=== PATIENT | male | born 1950 | race Caucasian/White ===

== ENCOUNTER 2016-04-10 04:42 | Observation (INO) | payer MEDICARE, OTHER ==
[~2016-04-10] VITALS: Ht 180.3 cm; Wt 94.3 kg
[~2016-04-10 04:42] MED LIST: ASPIR 8181 MG PO; BAYER CHEWABLE81 MG PO; CHERATUSSIN AC473 ML PO; CLONIDINE1 EAC1 TD; CORDARONE 200M200 MG PO; COREG 12.5MG12.5 MG PO; COREG 25MG TAB25 MG PO; COZAAR 25MG TAB25 MG PO; COZAAR100 MG PO; EMLA 30 GRAM TUB1 EA TOP; FAMOTIDINE20 MG PO; FEROSUL325 MG PO; FISH OIL 1,0001 EAC1 PO; FOSRENOL1000 MG PO; HUMIBID LA TAB600 MG PO; ISOSORBIDE MONO30 MG PO; LEVAQUIN250 MG PO; LEVEMIR100 UNIT/1 SC; LEVEMIR100 UNIT/1 SQ; LIDODERM PATCH 51 EA TOP; LIPITOR TAB 2020 MG PO; LOPERAMIDE2 MG PO; LORTAB 5-325 M1 EACH PO; MIRALAX PACK 171 PKT PO; MIRALAX17 GM PO; NOVOLOG100 UNIT/1 SQ; PHENERGAN 25 MG25 M1 PO; PLAVIX 75 MG TA75 MG PO; PROTONIX40 MG PO; RENA-VITE RX T1 EACH PO; RENVELA800 MG PO; SENNA8.6 MG PO; VALIUM 2 MG TAB2 MG PO; VITAMIN D31000 UNIT PO
[2016-04-10 05:19] LABS: HEMOGLOBIN 9.3 gm/dl (14.0-17.5); RED BLOOD COUNT 3.4 M/UL (4.20-5.50); WHITE BLOOD COUNT 6.4 K/UL (4.5-11.0)
[2016-04-10] MEDS ORDERED: RISPERDAL0.5 MG PO (09:57)
[2016-04-11] MEDS ORDERED: FORTAZ2 GM INJ (20:37)
[2016-04-11] MEDS ORDERED: VANCOCIN 125MG/2.5ML IV (20:40)
== END 2016-04-11 21:33 | disposition other institution (70) ==
LOC: ER1 04:42 → M/S 06:32 → ZEROF 06:32 → M/S 06:32
PROVIDERS: Student in an Organized Health Care Education/Training Program; ADMIT Internal Medicine
DX: R07.89 Other chest pain (principal); R74.8 Abnormal levels of other serum enzymes; M46.44 Discitis, unspecified, thoracic region; I25.5 Ischemic cardiomyopathy; I25.10 Atherosclerotic heart disease of native coronary artery without angina pectoris; E11.22 Type 2 diabetes mellitus with diabetic chronic kidney disease; I13.2 Hypertensive heart and chronic kidney disease with heart failure and with stage 5 chronic kidney disease, or end stage renal disease; I50.42 Chronic combined systolic (congestive) and diastolic (congestive) heart failure; N18.6 End stage renal disease; E78.5 Hyperlipidemia, unspecified; Z88.0 Allergy status to penicillin; Z88.2 Allergy status to sulfonamides; Z88.8 Allergy status to other drugs, medicaments and biological substances; Z79.891 Long term (current) use of opiate analgesic; Z79.899 Other long term (current) drug therapy; Z90.49 Acquired absence of other specified parts of digestive tract; Z93.3 Colostomy status; Z95.810 Presence of automatic (implantable) cardiac defibrillator; Z98.49 Cataract extraction status, unspecified eye; Z98.890 Other specified postprocedural states; Z99.2 Dependence on renal dialysis
CPT/HCPCS: 36415; 71010; 80053; 82550; 82553; 82962; 83874; 84484; 85025; 85610; 85730; 90937; 93005; 96374; 96375; 99285; G0257; G0378; J0713; J3370; J7050; J7070

== ENCOUNTER 2016-04-17 19:51 | Emergency (ER) | payer MEDICARE, OTHER ==
[~2016-04-17 19:51] MED LIST changes: +FORTAZ2 GM INJ; +RISPERDAL0.5 MG PO; +VANCOCIN 125MG/2.5ML IV
[2016-04-17 20:52] LABS: HEMOGLOBIN 9.2 gm/dl (14.0-17.5); RED BLOOD COUNT 3.31 M/UL (4.20-5.50); WHITE BLOOD COUNT 4.8 K/UL (4.5-11.0)
== END 2016-04-18 01:03 | disposition home or self-care (01) ==
LOC: ER1 19:51
PROVIDERS: Family Medicine
DX: R06.02 Shortness of breath (principal); Z88.0 Allergy status to penicillin; Z88.2 Allergy status to sulfonamides; Z88.8 Allergy status to other drugs, medicaments and biological substances
CPT/HCPCS: 36415; 80053; 82550; 82553; 83874; 84484; 85025; 93005; 99285

== ENCOUNTER 2016-04-30 11:57 | Emergency (ER) | payer MEDICARE, OTHER ==
[2016-04-30 12:11] LABS: RED BLOOD COUNT 3.45 M/UL (4.20-5.50); WHITE BLOOD COUNT 4.4 K/UL (4.5-11.0)
== END 2016-04-30 21:26 | disposition home or self-care (01) ==
LOC: ER1 11:57
PROVIDERS: Student in an Organized Health Care Education/Training Program
DX: M54.5 Low back pain (principal); I12.0 Hypertensive chronic kidney disease with stage 5 chronic kidney disease or end stage renal disease; N18.6 End stage renal disease; R77.8 Other specified abnormalities of plasma proteins; W01.0XXA Fall on same level from slipping, tripping and stumbling without subsequent striking against object, initial encounter; Z79.02 Long term (current) use of antithrombotics/antiplatelets; Z79.82 Long term (current) use of aspirin; Z79.899 Other long term (current) drug therapy; Z88.0 Allergy status to penicillin; Z88.2 Allergy status to sulfonamides; Z88.5 Allergy status to narcotic agent; Z88.8 Allergy status to other drugs, medicaments and biological substances
CPT/HCPCS: 36415; 70450; 71010; 72125; 72131; 80053; 82550; 82553; 83690; 83874; 84484; 85025; 85610; 85730; 93005; 96374; 96375; 99284; J2270; J2405

== ENCOUNTER 2016-05-05 15:23 | Emergency (ER) | payer MEDICARE, OTHER ==
[2016-05-05 20:39] LABS: HEMOGLOBIN 10.3 gm/dl (14.0-17.5); RED BLOOD COUNT 3.49 M/UL (4.20-5.50); WHITE BLOOD COUNT 6.9 K/UL (4.5-11.0)
== END 2016-05-06 02:10 | disposition home or self-care (01) ==
LOC: ER1 15:23
PROVIDERS: Physician Assistant
DX: M54.5 Low back pain (principal); G89.29 Other chronic pain; M46.44 Discitis, unspecified, thoracic region; I12.0 Hypertensive chronic kidney disease with stage 5 chronic kidney disease or end stage renal disease; E11.22 Type 2 diabetes mellitus with diabetic chronic kidney disease; N18.6 End stage renal disease; I25.10 Atherosclerotic heart disease of native coronary artery without angina pectoris; Z88.0 Allergy status to penicillin; Z88.1 Allergy status to other antibiotic agents; Z88.2 Allergy status to sulfonamides; Z88.5 Allergy status to narcotic agent; Z95.5 Presence of coronary angioplasty implant and graft; Z99.2 Dependence on renal dialysis
CPT/HCPCS: 36415; 72128; 72131; 80053; 85025; 86140; 96372; 99284; J2270; J2405